=== PATIENT | female | born 1980 | race Caucasian/White ===

== ENCOUNTER 2018-01-25 15:13 | Outpatient (REF) | payer MEDICAID, SELFPAY ==
[2018-01-25 21:55] LABS: Hemoglobin A1C 5.7 % (4.5-6.2)
[2018-01-25 22:07] LABS: Cholesterol 158 mg/dL (50-200); HDL Cholesterol 48 mg/dL (40-60); LDL CHOLESTEROL 97 mg/dL (<100); Triglyceride 125 mg/dL (30-150)
[2018-01-27 14:54] LABS: Chlamydia Result Negative; GC Result Negative; Specimen Description URINE
[2018-01-27 21:32] LABS: C.trach, Misc, Amplified RNA Negative (Negative); N.gonorr, Misc, Amplified RNA Negative (Negative); SOURCE: THROAT
== END 2018-01-25 15:33 ==
LOC: NCHCN 15:13
PROVIDERS: PCP Family Medicine; Visit Provider Registered Nurse
DX: Z11.3 Encounter for screening for infections with a predominantly sexual mode of transmission (principal); Z13.1 Encounter for screening for diabetes mellitus; Z13.220 Encounter for screening for lipoid disorders
CPT/HCPCS: 80061; 83721; 87491; 87591; 83036

== ENCOUNTER 2018-04-22 15:50 | Emergency (ER) | payer MEDICAID, SELFPAY ==
[2018-04-22 15:56] VITALS: BP 182/101; PULSE 93; RESP 10; TEMP 37.4; O2SAT 95
--- NOTE | 2018-04-22 16:11 | W.ED.GENAD ---
Discharge Plan Disposition Patient Disposition: HOME Condition: Improving Discharge Details Chief Complaint: OD/Poison Clinical Impression: Fatigue Reason For Visit: SILVANA Primary Care Provider: Lyubov Silverio ED Provider: Yasmani Hunter Home Meds and New Rx's Prescriptions: Continued Naproxen 375 MG Tablet 375 mg PO BID PRN (Reason: Pain) Qty: 14 RF: 0 Discontinued acetaminophen-codeine [Tylenol-Codeine #3] 1 TAB tablet 1 tab PO Q6H PRN (Reason: Severe Pain) Qty: 8 RF: 0 cephalexin 500 MG capsule 500 mg PO Q6H Qty: 19 RF: 0 Discharge Instructions Instructions: Fatigue (ED) Additional Instructions: Return at any time for reevaluation. You are medically stable for discharge from the emergency department. Medical Decision Making 37-year-old female brought by EMS and police after suspicion for unintentional overdose in which she was found sleeping in a local parking lot. She arrives awake, alert, denying any acute ingestion, denies thoughts of harming herself or others, states he feels improved and has had poor sleep recently. Do not find any reason for further evaluation. Patient ambulatory, clinically sober, appropriate for discharge. HPI General Mode of arrival: EMS. Date/Time Provider Initiated Documentation: 04/22/18 16:05. Limitations to Documentation: no limitations. Information obtained by: patient and EMS. History of Present Illness 37 year old F presents to the emergency department with the chief complaint of Possible overdose, and it has been now resolved. No relieving factors improve symptom(s), No exacerbating factors reported . Patient notes no other symptoms.. HPI Narrative: Patient states that she was found sleeping by EMS, was awakened and told that she decided to be observed in shelter or present to the ER for medical evaluation. She denies to me any illicit drug use. States she feels improved states she has had poor sleep over a number of days time Related Data Home Medications Medication Instructions Recorded Confirmed Naproxen 375 mg PO BID PRN #14 tablet 09/24/17 Previous Rx's Medication Instructions Recorded Naproxen 375 mg PO BID PRN #14 tablet 09/24/17 Allergies Allergy/AdvReac Type Severity Reaction Status Date / Time milk chocolate AdvReac Severe Headache Uncoded 09/24/17 11:46 General Stated Complaint: OD/Poison DARIA: 3 Review of Systems Review of Systems 6 systems reviewed and otherwise negative [facility] Medical History Fibromyalgia Surgical History section Cholecystectomy (07/29/16) Ligation of fallopian tube Family History Mother Diabetes Maternal Aunt No problems noted. Exam Narrative Exam Narrative: GEN: awake, alert, oriented 3. Pleasant, well groomed, interactive. HEAD: Normocephalic, atraumatic ENT: Mucous membranes moist, oropharynx unremarkable, External ear exam unremarkable EYES: PERRL, EOMI NECK: Full ROM, no AP, no menigismus CHEST/RESP: Nontender, clear to auscultation bilateral, no wheeze/rhonchi/rales CARDIOVASCULAR: RRR, no murmur, rub chang. 2+ Rad pulse bilateral ABDOMEN: Soft, nontender, no mass. +Bowel sounds EXT: Full ROM, no edema, no rash Neuro: Grossly normal neurologic exam, conversant, interactive. Psych: Speech fluent, thoughts congruent, affect normal Course Vital Signs Temperature 37.4 C 04/22/18 15:56 Pulse 93 H 04/22/18 15:56 Respiratory Rate 10 L 04/22/18 15:56 Blood Pressure 182/101 H 04/22/18 15:56 Pulse Oximetry 95 04/22/18 15:56 Temperature 37.4 C 04/22/18 15:56 Temperature Source Temporal Artery Scan 04/22/18 15:56 Pulse 93 H 04/22/18 15:56 Respiratory Rate 10 L 04/22/18 15:56 Blood Pressure 182/101 H 04/22/18 15:56 Blood Pressure Position Sitting 04/22/18 15:56 Pulse Oximetry 95 04/22/18 15:56 Oxygen Delivery Method Room Air 04/22/18 15:56 Oxygen Flow Rate 0 04/22/18 15:56 Pain Level 10 04/22/18 15:56 Comment 04/22/18 15:56
--- NOTE | 2018-04-22 16:15 | ED.GENADUL_ITS ---
Discharge Plan Disposition Patient Disposition: HOME Condition: Improving Discharge Details Chief Complaint: OD/Poison Clinical Impression: Fatigue Reason For Visit: SILVANA Primary Care Provider: Lyubov Silverio ED Provider: Yasmani Hunter Home Meds and New Rx's Prescriptions: Continued Naproxen 375 MG Tablet 375 mg PO BID PRN (Reason: Pain) Qty: 14 RF: 0 Discontinued acetaminophen-codeine [Tylenol-Codeine #3] 1 TAB tablet 1 tab PO Q6H PRN (Reason: Severe Pain) Qty: 8 RF: 0 cephalexin 500 MG capsule 500 mg PO Q6H Qty: 19 RF: 0 Discharge Instructions Instructions: Fatigue (ED) Additional Instructions: Return at any time for reevaluation. You are medically stable for discharge from the emergency department. Medical Decision Making 37-year-old female brought by EMS and police after suspicion for unintentional overdose in which she was found sleeping in a local parking lot. She arrives awake, alert, denying any acute ingestion, denies thoughts of harming herself or others, states he feels improved and has had poor sleep recently. Do not find any reason for further evaluation. Patient ambulatory, clinically sober, appropriate for discharge. HPI General Mode of arrival: EMS . Date/Time Provider Initiated Documentation: 04/22/18 16:05 . Limitations to Documentation: no limitations . Information obtained by: patient and EMS . History of Present Illness 37 year old F presents to the emergency department with the chief complaint of Possible overdose, and it has been now resolved. No relieving factors improve symptom(s), No exacerbating factors reported . Patient notes no other symptoms.. HPI Narrative: Patient states that she was found sleeping by EMS, was awakened and told that she decided to be observed in [facility] or present to the ER for medical evaluation. She denies to me any illicit drug use. States she feels improved states she has had poor sleep over a number of days time Related Data Home Medications Medication Instructions Recorded Confirmed Naproxen 375 mg PO BID PRN #14 tablet 09/24/17 Previous Rx's Medication Instructions Recorded Naproxen 375 mg PO BID PRN #14 tablet 09/24/17 Allergies Allergy/AdvReac Type Severity Reaction Status Date / Time milk chocolate AdvReac Severe Headache Uncoded 09/24/17 11:46 General Stated Complaint: OD/Poison DARIA: 3 Review of Systems Review of Systems 6 systems reviewed and otherwise negative [facility] Medical History Fibromyalgia Surgical History section Cholecystectomy (07/29/16) Ligation of fallopian tube Family History Mother Diabetes Maternal Aunt No problems noted. Exam Narrative Exam Narrative: GEN: awake, alert, oriented 3. Pleasant, well groomed, interactive. HEAD: Normocephalic, atraumatic ENT: Mucous membranes moist, oropharynx unremarkable, External ear exam unremarkable EYES: PERRL, EOMI NECK: Full ROM, no AP, no menigismus CHEST/RESP: Nontender, clear to auscultation bilateral, no wheeze/rhonchi/rales CARDIOVASCULAR: RRR, no murmur, rub chang. 2+ Rad pulse bilateral ABDOMEN: Soft, nontender, no mass. +Bowel sounds EXT: Full ROM, no edema, no rash Neuro: Grossly normal neurologic exam, conversant, interactive. Psych: Speech fluent, thoughts congruent, affect normal Course Vital Signs Temperature 37.4 C 04/22/18 15:56 Pulse 93 H 04/22/18 15:56 Respiratory Rate 10 L 04/22/18 15:56 Blood Pressure 182/101 H 04/22/18 15:56 Pulse Oximetry 95 04/22/18 15:56 Temperature 37.4 C 04/22/18 15:56 Temperature Source Temporal Artery Scan 04/22/18 15:56 Pulse 93 H 04/22/18 15:56 Respiratory Rate 10 L 04/22/18 15:56 Blood Pressure 182/101 H 04/22/18 15:56 Blood Pressure Position Sitting 04/22/18 15:56 Pulse Oximetry 95 04/22/18 15:56 Oxygen Delivery Method Room Air 04/22/18 15:56 Oxygen Flow Rate 0 04/22/18 15:56 Pain Level 10 04/22/18 15:56 Comment 04/22/18 15:56
--- NOTE | 2018-04-22 16:20 | NUR.NOTE ---
patient declines further work up.
== END 2018-04-22 16:28 | disposition home or self-care (01) ==
PROVIDERS: Emergency Provider Emergency Medicine; PCP Family Medicine
DX: R53.83 Other fatigue (principal)
CPT/HCPCS: 36416; 82962; 99285; 99283

== ENCOUNTER 2019-04-28 09:49 | Emergency (ER) | payer MEDICAID, SELFPAY ==
[2019-04-28 09:59] VITALS: BP 160/101; PULSE 86; RESP 14; TEMP 36.4; O2SAT 98
--- NOTE | 2019-04-28 10:16 | ED.GENADUL_ITS ---
Discharge Plan Disposition Patient Disposition: HOME Condition: Stable Discharge Details Chief Complaint: RespSymp Clinical Impression: Acute bronchitis with bronchospasm Primary Care Provider: Lyubov Silverio ED Provider: Yasmani Hunter Home Meds and New Rx's Prescriptions: New prednisone 20 mg tablet 40 mg PO DAILY 5 Days Qty: 10 RF: 0 doxycycline hyclate 100 mg capsule 100 mg PO BID 10 Days Qty: 20 RF: 0 Discharge Instructions Instructions: Acute Bronchitis (ED) Additional Instructions: Take antibiotics and prednisone as prescribed. May use the provided inhaler 1 to 2 puffs every 4 hours as needed. Return if you feel you need to use the inhaler more often. Please maintain good hydration with small, frequent sips of fluids. Apply mupirocin cream 2-3 times daily to affected areas of skin. Please follow-up with Dr. Silevrio for recheck if not improving in 1 week's time. Medical Decision Making 38-year-old female presents with 10 days of cough with production of sputum, congestion, sore throat. On exam she is mildly hypertensive, appears anxious, has numerous excoriated lesions on her face and extremities. Exam is otherwise notable for end expiratory wheeze. She is not hypoxic. Her pulse is 86. She is referred for chest x-ray and given DuoNeb. X-ray without acute finding, no consolidations. We will treat with mupirocin ointment to excoriated lesions. Will treat with a course of oral antibiotics and burst of oral steroids. She is provided a fresh albuterol inhaler with spacer to be used as needed. She has plans to restablish primary care. ECG Data Attestation: I personally reviewed and interpreted this ECG (s) as follows: Interpretation: Normal sinus rhythm, rate of 69, the QRS is narrow, there is nonspecific ST segment flattening present in the inferior leads, no ST segment elevation. HPI General Mode of arrival: ambulatory . Date/Time Provider Initiated Documentation: 04/28/19 09:50 . Limitations to Documentation: no limitations . Information obtained by: patient . History of Present Illness 38 year old F presents to the emergency department with the chief complaint of 10 days cough, congestion, sore throat, ear pain, Quality is described as constant, and is localized to the chest. Patient reports no radiation. Patient started experiencing this day(s) and it has been constant. No relieving factors improve symptom(s), No exacerbating factors reported . Patient notes cough, fever/chills, loss of appetite, malaise and other (Has been picking at lesions, right ear discharge.); denies chest pain, nausea/vomiting, seizure, shortness of breath and syncope. Patient did receive the following treatments prior to arrival, other (Inhaler almost ran out) Related Data Home Medications Medication Instructions Recorded Confirmed doxycycline hyclate 100 mg PO BID 10 Days #20 cap 04/28/19 prednisone 40 mg PO DAILY 5 Days #10 tab 04/28/19 Previous Rx's Medication Instructions Recorded doxycycline hyclate 100 mg PO BID 10 Days #20 cap 04/28/19 prednisone 40 mg PO DAILY 5 Days #10 tab 04/28/19 Allergies Allergy/AdvReac Type Severity Reaction Status Date / Time milk chocolate AdvReac Severe Headache Uncoded 04/28/19 10:04 General Stated Complaint: RespSymp DARIA: 2 Review of Systems Narrative: 6 systems reviewed and otherwise negative PFSH Social History Smoking/Tobacco Use Status: Current every day Tobacco Type: cigarettes Drug use: Daily Substance use type: marijuana Details: new to methadone clinic used to smoke 2ppd Do you feel safe at home: Yes Do you feel safe in your relationship?: Yes Exam Narrative Exam Narrative: GEN: awake, alert, oriented 3. Pleasant, well groomed, interactive. HEAD: Normocephalic, atraumatic ENT: Mucous membranes moist, oropharynx partially edentulous with erythematous tonsillar pillars but no swelling or exudate, tympanic membranes visualized bilaterally, left external ear exam with excoriated lesion that is crusted over. EYES: PERRL, EOMI NECK: Full ROM, no AP, no menigismus CHEST/RESP: Nontender, end expiratory wheeze bilaterally CARDIOVASCULAR: RRR, no murmur, rub chang. 2+ Rad pulse bilateral ABDOMEN: Soft, nontender, no mass. +Bowel sounds EXT: Full ROM, no edema, no rash. Track [place] bilateral. Skin: Excoriated lesions on face and extremities. Neuro: Grossly normal neurologic exam, conversant, interactive. Psych: Speech fluent, thoughts congruent, affect anxious Course Vital Signs Vital signs: Vital Signs Temperature 36.4 C L 04/28/19 09:59 Pulse 86 04/28/19 09:59 Respiratory Rate 14 04/28/19 09:59 Blood Pressure 160/101 H 04/28/19 09:59 Pulse Oximetry 98 04/28/19 09:59 Temperature 36.4 C L 04/28/19 09:59 Temperature Source Skin 04/28/19 09:59 Pulse 86 04/28/19 09:59 Respiratory Rate 14 04/28/19 09:59 Respiratory Depth Normal 04/28/19 10:07 Blood Pressure 160/101 H 04/28/19 09:59 Blood Pressure Position Sitting 04/28/19 09:59 Pulse Oximetry 98 04/28/19 09:59 Oxygen Delivery Method Room Air 04/28/19 09:59 Oxygen Flow Rate 0 04/28/19 09:59 Pain Level 6 04/28/19 09:59 Comment needs to get in to see [facility] 04/28/19 09:59
[2019-04-28] MEDS: Albuterol/Ipratropium 3 ML UPD VIAL UPD (10:20)
[2019-04-28] MEDS: Albuterol HFA 8 GM 60 PUFF INH IH (10:29)
[2019-04-28] MEDS: Inhaler, Assist Device 1 EACH MC ×2 (10:30→10:41)
--- NOTE | 2019-04-28 10:41 | RESPIRATORY ---
04/28/2019-Pt here with chest tightness. Instructed Pt on usage of spacer with MDI with breath hold.
--- NOTE | 2019-04-28 10:47 | DI.RAD_ITS ---
EXAM: XR CHEST 2V PA LATERAL XR CHEST 2V PA LATERAL CLINICAL HISTORY: cough, congestion cough, congestion TECHNIQUE: 2D digital imaging was performed. COMPARISON: RIGHT RIBS TO INCLUDE CXR from 09/24/2017 FINDINGS: The heart is not enlarged. The lungs are clear and well expanded. No pleural effusion seen. Mediastin al contours appear intact. IMPRESSION: Normal chest
[2019-04-28 11:07] VITALS: BP 160/100; PULSE 77; RESP 16; TEMP 37.2; O2SAT 97
== END 2019-04-28 11:13 | disposition home or self-care (01) ==
PROVIDERS: Emergency Provider Emergency Medicine; PCP Nurse Practitioner Family
DX: J20.9 Acute bronchitis, unspecified (principal); R21 Rash and other nonspecific skin eruption; F17.210 Nicotine dependence, cigarettes, uncomplicated
CPT/HCPCS: 93005; 94640; 99284; 71046; 93010; J7620

== ENCOUNTER 2019-07-08 12:31 | Outpatient (REF) | payer MEDICAID, SELFPAY ==
--- NOTE | 2019-07-08 11:00 | PAPFT_PTH ---
PATIENT: WILLI NASH LOC: [facility] U#:[id number] AGE/SX: 39/F ROOM: RE07/08/[address]: Alfie Juan : 1980 BED: DIS: 07/08/2019 SPEC #: [id number] RECD: 07/08/19 13:00 STATUS: ITZEL REBrooklynn #: [id number] JESSICA: 07/08/19 11:[address]: Alfie Juan DEPT: [facility] Cytology RECD BY: Lizbeth Cid Tissues: 1 - CX/ENDOCX FOR PAP SMEARS Procedures: PAP THIN PREP/[facility] Screening HPV DNA PROBE Comments: [id number]
[2019-07-08 14:43] LABS: COMMENT (LAB VIEW ONLY) 217.76 mg/dL; Prot/Crea Ur Ratio 0.09
[2019-07-08 14:45] LABS: COMMENT (LAB VIEW ONLY) 220.45 mg/dL; Microalb ug/mg Crea 5.4 ug/mg Cr
== END 2019-07-08 12:51 ==
LOC: NCHCN 12:31
PROVIDERS: PCP Nurse Practitioner Family; Visit Provider Nurse Practitioner Family
DX: R73.03 Prediabetes (principal); Z12.4 Encounter for screening for malignant neoplasm of cervix; Z11.51 Encounter for screening for human papillomavirus (HPV); Z00.00 Encounter for general adult medical examination without abnormal findings
CPT/HCPCS: 88142; 82043; 82565; 82570; 84156; 87624